=== PATIENT | male | born 2000 | race Caucasian/White ===

== ENCOUNTER 2020-08-16 16:53 | Emergency (ER) | payer SELFPAY ==
--- NOTE | 2020-08-16 17:38 | RAD REPORT ---
EXAM DESCRIPTION: RAD - Chest Single View - 08/16/2020 5:30 pm CLINICAL HISTORY: COUGH Chest pain. COMPARISON: No comparisons FINDINGS: Portable technique limits examination quality. The lungs are grossly clear. The heart is normal in size. No displaced fractures. IMPRESSION: No acute intrathoracic process suspected.
--- NOTE | 2020-08-16 17:49 | ER ---
Nurse's Notes [facility] Name: Britton Stapleton Age: 20 yrs Sex: Male : 2000 Arrival Date: 08/16/2020 Time: 16:57 Bed 15 Private MD: Diagnosis: Cough Presentation: 08/16 17:05 Chief complaint: Patient states: "I was spitting up blood today and my work wanted me aa5 to check it out". Pt denies cough, denies fever. 17:05 Coronavirus screen: Client denies travel out of the [place] in the last 14 days. At this aa5 time, the client does not indicate any symptoms associated with coronavirus-19. Ebola Screen: Patient negative for fever greater than or equal to 101.5 degrees Fahrenheit, and additional compatible Ebola Virus Disease symptoms. Initial Sepsis Screen: Does the patient meet any 2 criteria? No. Patient's initial sepsis screen is negative. Does the patient have a suspected source of infection? No. Patient's initial sepsis screen is negative. Risk Assessment: Do you want to hurt yourself or someone else? Patient reports no desire to harm self or others. Onset of symptoms was August 16, 2020. 17:05 Acuity: TYLER 4 aa5 17:05 Method Of Arrival: Ambulatory aa5 Historical: - Allergies: 17:10 No Known Allergies; aa5 - PMHx: 17:10 Asthma; aa5 - PSHx: 17:10 L foot sx; aa5 - Immunization history:: Adult Immunizations unknown. - Social history:: Smoking status: Patient reports the use of cigarette tobacco products, 2-3 cigarettes a day . Vital Signs: 17:10 BP 106 / 52; Pulse 95; Resp 18 S; Temp 98.1(O); Pulse Ox 95% on R/A; Weight 67.13 kg aa5 (R); Height 5 ft. 9 in. (175.26 cm) (R); Pain 0/10; 17:10 Body Mass Index 21.86 (67.13 kg, 175.26 cm) aa5 ED Course: 16:57 Patient arrived in ED. ag5 17:05 Arm band placed on. aa5 17:12 Kristina Meza FNP-C is PHCP. kb 17:12 Brandt Champion MD is Attending Physician. kb 17:31 Chest Single View XRAY In Process Unspecified. EDMS 17:32 Triage completed. aa5 17:52 Cynthia Vasquez, RN is Primary Nurse. iw Administered Medications: No medications were administered Outcome: 17:48 Discharge ordered by . kb 17:57 Patient left the ED. iw Signatures: Dispatcher [employer] EDTN Kristina Meza, JOURNEYMAN POWER PLANT OPERATOR-C JOURNEYMAN POWER PLANT OPERATOR-Ckb Cynthia Vasquez, RN RN iw Kristi Sahni RN RN aa Elida Cueto [facility]
--- NOTE | 2020-08-16 17:49 | EDPHYS ---
Physician Documentation [facility] Name: Britton Stapleton Age: 20 yrs Sex: Male : 2000 Arrival Date: 08/16/2020 Time: 16:57 Bed 15 Private MD: ED Physician Brandt Champion HPI: 08/16 17:44 This 20 yrs old Male presents to ER via Ambulatory with complaints of kb Spitting up blood. 17:44 The patient or guardian reports cough, that is intermittent, described as moderate, kb with productive sputum. Onset: The symptoms/episode began/occurred today. Severity of symptoms: At their worst the symptoms were mild, moderate, in the emergency department the symptoms have resolved. Modifying factors: The symptoms are alleviated by nothing, the symptoms are aggravated by nothing. Associated signs and symptoms: The patient has no apparent associated signs or symptoms. The patient has not experienced similar symptoms in the past. The patient has not recently seen a physician. Pt reports he had been coughing all day. States he noticed some blood in his spit a little while ago and someone from work saw it so they told him he had to come get checked out to return. Pt states "I feel fine.". Historical: - Allergies: 17:10 No Known Allergies; aa5 - PMHx: 17:10 Asthma; aa5 - PSHx: 17:10 L foot sx; aa5 - Immunization history:: Adult Immunizations unknown. - Social history:: Smoking status: Patient reports the use of cigarette tobacco products, 2-3 cigarettes a day . ROS: 17:43 Constitutional: Negative for fever, chills, and weight loss, Cardiovascular: Negative kb for chest pain, palpitations, and edema, Abdomen/GI: Negative for abdominal pain, nausea, vomiting, diarrhea, and constipation, Back: Negative for injury and pain, MS/Extremity: Negative for injury and deformity, Skin: Negative for injury, rash, and discoloration, Neuro: Negative for headache, weakness, numbness, tingling, and seizure. 17:43 Respiratory: Positive for cough, hemoptysis, Negative for dyspnea on exertion, orthopnea, pleurisy, shortness of breath, wheezing. Exam: 17:43 Constitutional: This is a well developed, well nourished patient who is awake, alert, kb and in no acute distress. Head/Face: Normocephalic, atraumatic. Chest/axilla: Normal chest wall appearance and motion. Nontender with no deformity. No lesions are appreciated. Cardiovascular: Regular rate and rhythm with a normal S1 and S2. No gallops, murmurs, or rubs. Normal PMI, no JVD. No pulse deficits. Respiratory: Lungs have equal breath sounds bilaterally, clear to auscultation and percussion. No rales, rhonchi or wheezes noted. No increased work of breathing, no retractions or nasal flaring. Abdomen/GI: Soft, non-tender, with normal bowel sounds. No distension or tympany. No guarding or rebound. No evidence of tenderness throughout. Skin: Warm, dry with normal turgor. Normal color with no rashes, no lesions, and no evidence of cellulitis. MS/ Extremity: Pulses equal, no cyanosis. Neurovascular intact. Full, normal range of motion. Neuro: Awake and alert, GCS 15, oriented to person, place, time, and situation. Cranial nerves II-XII grossly intact. Motor strength 5/5 in all extremities. Sensory grossly intact. Cerebellar exam normal. Normal gait. Vital Signs: 17:10 BP 106 / 52; Pulse 95; Resp 18 S; Temp 98.1(O); Pulse Ox 95% on R/A; Weight 67.13 kg aa5 (R); Height 5 ft. 9 in. (175.26 cm) (R); Pain 0/10; 17:10 Body Mass Index 21.86 (67.13 kg, 175.26 cm) aa5 MDM: 17:12 Patient medically screened. kb 17:42 Data reviewed: vital signs, nurses notes. Data interpreted: Pulse oximetry: on room air kb is 95 %. Interpretation: normal. Counseling: I had a detailed discussion with the patient and/or guardian regarding: the historical points, exam findings, and any diagnostic results supporting the discharge/admit diagnosis, radiology results, the need for outpatient follow up, a family practitioner, to return to the emergency department if symptoms worsen or persist or if there are any questions or concerns that arise at home. 08/16 17:16 Order name: Chest Single View XRAY; Complete Time: 17:39 kb Administered Medications: No medications were administered Disposition: 08/17 07:34 Co-signature as Attending Physician, Brandt Akira MD I agree with the assessment and kaveh plan of care. Disposition: 08/16/20 17:48 Discharged to Home. Impression: Cough. - Condition is Stable. - Discharge Instructions: Cough, Adult, [id number]. - Medication Reconciliation Form, Thank You Letter, Antibiotic Education, Prescription Opioid Use, Work release form form. - Follow up: Emergency Department; When: As needed; Reason: Worsening of condition. Follow up: Private Physician; When: 2 - 3 days; Reason: Recheck today's complaints, Continuance of care, Re-evaluation by your physician. Signatures: Dispatcher [employer] EDMS Kristina Meza, MACHINE OPERATIONS SUPERVISOR-C MACHINE OPERATIONS SUPERVISOR-Ckb Brandt Champion MD MD cha Williams, Irene, RN RN Kristi Velázquez RN RN aa5 Corrections: (The following items were deleted from the chart) 08/16 17:44 17:43 Respiratory: Positive for cough, Negative for dyspnea on exertion, hemoptysis, kb orthopnea, pleurisy, shortness of breath, wheezing, kb 17:57 17:48 08/16/2020 17:48 Discharged to Home. Impression: Cough. Condition is Stable. iw Discharge Instructions: Cough, Adult, [id number]. Forms are Medication Reconciliation Form, Thank You Letter, Antibiotic Education, Prescription Opioid Use. Follow up: Emergency Department; When: As needed; Reason: Worsening of condition. Follow up: Private Physician; When: 2 - 3 days; Reason: Recheck today's complaints, Continuance of care, Re-evaluation by your physician. kb
[2020-08-16 18:00] VITALS: BP 106/52; TEMP 98.1; O2SAT 95
== END 2020-08-16 17:57 | disposition home or self-care (01) ==
LOC: ER 16:53
DX: R05 Cough (principal); F17.210 Nicotine dependence, cigarettes, uncomplicated
CPT/HCPCS: 71045; 99282

== ENCOUNTER 2020-12-28 10:33 | Emergency (ER) | payer SELFPAY ==
--- OUTSIDE RECORDS SUMMARY | 2020-12-28 10:36 | XMS REPORT | Continuity of Care Document ---
:2000 Author Organization [facility] t Address [address] [place] [address] Care Team Providers Name Role Phone Unavailable Unavailable Unavailable Problems This patient has no known problems. Allergies, Adverse Reactions, Alerts This patient has no known allergies or adverse reactions. Medications This patient has no known medications. Procedures This patient has no known procedures. Results This patient has no known results.
--- NOTE | 2020-12-28 11:28 | RAD REPORT ---
EXAM DESCRIPTION: CT - Head Brain Wo Cont - 12/28/2020 11:12 am CLINICAL HISTORY: Syncope COMPARISON: None TECHNIQUE: Computed axial tomography of the head was obtained. IV contrast was not requested. All CT scans are performed using dose optimization technique as appropriate and may include automated exposure control or mA/KV adjustment according to patient size. FINDINGS: An intracranial bleed is not seen . The ventricles are normal in caliber. No extra-axial fluid collection is noted. Fluid within the sinuses/ mastoids is not seen. IMPRESSION: No acute intracranial abnormality is seen. If patient's symptoms persist MRI of the bra in would be recommended.
[2020-12-28 11:33] LABS: Absolute Lymphocytes (CBC) 1.6 K/uL (0.7-4.9); Basophils % 0.8 % (0-1.3); Hematocrit 41.4 % (39.6-49.0); MPV 9.4 fL (7.6-11.3); RBC Red Blood Cell Count 4.55 M/uL (4.33-5.43)
[2020-12-28 11:37] LABS: Protime INR 1.03
[2020-12-28 11:39] LABS: ALT/SGPT 33 U/L (12-78); AST/SGOT 16 U/L (15-37); Albumin 4.1 g/dL (3.4-5.0); Alkaline Phosphatase 56 U/L (45-117); BUN Blood Urea Nitrogen 13 mg/dL (7-18); Bicarbonate 27 mmol/L (21-32); Bilirubin Direct < 0.1 mg/dL (0-0.2); Bilirubin Total 0.3 mg/dL (0.2-1.0); CKMB Creatine Kinase MB 1.5 ng/mL (0.3-3.6); Creatine Phosphokinase 158 U/L (39-308); Glucose Level 119 mg/dL (74-106); Lipase 174 U/L (73-393); Magnesium 1.9 mg/dL (1.8-2.4); Potassium 4.1 mmol/L (3.5-5.1); Protein, Total 7.3 g/dL (6.4-8.2); Sodium Level 140 mmol/L (136-145); Troponin (Emerg Dept Use Only) < 0.02 ng/mL (0.0-0.045)
--- NOTE | 2020-12-28 11:53 | EDPHYS ---
Physician Documentation [facility] Name: Britton Stapleton Age: 20 yrs Sex: Male : 2000 Arrival Date: 12/28/2020 Time: 10:36 Bed 15 Private MD: DARÍO Physician Brandt Champion HPI: 12/28 11:45 This 20 yrs old Male presents to ER via Ambulatory with complaints of Anxiety.kb 11:48 The patient has experienced syncope, collapsed. Onset: The symptoms/episode kb began/occurred yesterday. Duration: This was a single episode, that lasted an unknown period of time. Context: the episode(s) was witnessed, by co-worker(s), occurred at work, occurred while the patient was walking, working, Just prior to the episode the patient experienced dizziness. Associated injury: The patient did not suffer any apparent associated injury. Associated signs and symptoms: Pertinent positives: dizziness, Pertinent negatives: abdominal pain, headache, nausea, shortness of breath, tingling, vomiting, weakness. Current symptoms: Currently, the patient is not experiencing any symptoms, the patient feels back to baseline, no decreased level of consciousness, no confusion, no dysphasia, no headache, no paralysis, no visual changes. The patient has not experienced similar symptoms in the past. The patient has not recently seen a physician. "I had an anxiety attack yesterday and passed out at work. 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 States he had a couple of episodes of dizziness throughout the day, but ignored it. Had that feeling again before passing out. States he feels fine now, just needs to get checked out so he can go back to work. Historical: - Allergies: 10:41 No Known Allergies; ll1 - PMHx: 10:41 Asthma; ll1 - PSHx: 10:41 L foot sx; Tonsillectomy; ll1 - Immunization history:: Flu vaccine is not up to date. - Social history:: Smoking status: Patient reports the use of cigarette tobacco products, denies chronic smoking, but will smoke occasionally. ROS: 11:44 Constitutional: Negative for fever, chills, and weight loss, Cardiovascular: Negative kb for chest pain, palpitations, and edema, Respiratory: Negative for shortness of breath, cough, wheezing, and pleuritic chest pain, Abdomen/GI: Negative for abdominal pain, nausea, vomiting, diarrhea, and constipation, MS/Extremity: Negative for injury and deformity, Skin: Negative for injury, rash, and discoloration. 11:44 Neuro: Positive for syncope. 11:44 Psych: Positive for anxiety, Negative for depression, suicide gesture, suicidal ideation. Exam: 11:44 Constitutional: This is a well developed, well nourished patient who is awake, alert, kb and in no acute distress. Head/Face: Normocephalic, atraumatic. Eyes: Pupils equal round and reactive to light, extra-ocular motions intact. Lids and lashes normal. Conjunctiva and sclera are non-icteric and not injected. Cornea within normal limits. Periorbital areas with no swelling, redness, or edema. Chest/axilla: Normal chest wall appearance and motion. Nontender with no deformity. No lesions are appreciated. Cardiovascular: Regular rate and rhythm with a normal S1 and S2. No gallops, murmurs, or rubs. Normal PMI, no JVD. No pulse deficits. Respiratory: Lungs have equal breath sounds bilaterally, clear to auscultation and percussion. No rales, rhonchi or wheezes noted. No increased work of breathing, no retractions or nasal flaring. Abdomen/GI: Soft, non-tender, with normal bowel sounds. No distension or tympany. No guarding or rebound. No evidence of tenderness throughout. Skin: Warm, dry with normal turgor. Normal color with no rashes, no lesions, and no evidence of cellulitis. MS/ Extremity: Pulses equal, no cyanosis. Neurovascular intact. Full, normal range of motion. 11:44 Neuro: Orientation: is normal, to person, place, time \\T\\ situation. Mentation: is normal, able to follow commands, Motor: is normal, moves all fours, Sensation: is normal, Gait: is steady, without difficulty. 11:52 ECG was reviewed by the Attending Physician. kb Vital Signs: 10:39 BP 128 / 73; Pulse 81; Resp 16; Temp 97.5; Pulse Ox 100% ; Height 5 ft. 9 in. (175.26 ll1 cm); Pain 6/10; 11:20 BP 112 / 64 Supine; Pulse 62; Resp 16; Temp 98; Pulse Ox 98% ; dm14 11:20 BP 95 / 72 Sitting; Pulse 68; dm14 11:20 BP 134 / 69 Standing; Pulse 78; dm14 MDM: 10:51 Patient medically screened. kb 11:43 Data reviewed: vital signs, nurses notes. Data interpreted: Pulse oximetry: on room air kb is 98 %. Interpretation: normal. Counseling: I had a detailed discussion with the patient and/or guardian regarding: the historical points, exam findings, and any diagnostic results supporting the discharge/admit diagnosis, lab results, radiology results, the need for outpatient follow up, a family practitioner, to return to the emergency department if symptoms worsen or persist or if there are any questions or concerns that arise at home. 12/28 10:59 Order name: Basic Metabolic Panel kb 12/28 10:59 Order name: CBC with Diff kb 12/28 10:59 Order name: Ckmb kb 12/28 10:59 Order name: CPK kb 12/28 10:59 Order name: Hepatic Function; Complete Time: 11:42 kb 12/28 10:59 Order name: Lipase; Complete Time: 11:42 kb 12/28 10:59 Order name: Magnesium; Complete Time: 11:42 kb 12/28 10:59 Order name: Protime (+inr); Complete Time: 11:42 kb 12/28 10:59 Order name: Ptt, Activated; Complete Time: 11:42 kb 12/28 10:59 Order name: Troponin (emerg Dept Use Only); Complete Time: 11:42 kb 12/28 11:00 Order name: Basic Metabolic Panel; Complete Time: 11:42 EDMS 12/28 11:00 Order name: CBC with Automated Diff; Complete Time: 11:42 EDMS 12/28 11:00 Order name: CKMB Creatine Kinase MB; Complete Time: 11:42 EDMS 12/28 11:00 Order name: Creatine Phosphokinase; Complete Time: 11:42 EDMS 12/28 10:59 Order name: EKG; Complete Time: 11:01 kb 12/28 10:59 Order name: Cardiac monitoring; Complete Time: 11:19 kb 12/28 10:59 Order name: EKG - Nurse/Tech; Complete Time: 11:18 kb 12/28 10:59 Order name: IV Saline Lock; Complete Time: 11:19 kb 12/28 10:59 Order name: Labs collected and sent; Complete Time: 11:19 kb 12/28 10:59 Order name: NPO; Complete Time: 11:19 kb 12/28 10:59 Order name: O2 Per Protocol; Complete Time: 11:18 kb 12/28 10:59 Order name: O2 Sat Monitoring; Complete Time: 11:18 kb 12/28 10:59 Order name: Orthostatics; Complete Time: 12:43 kb 12/28 10:59 Order name: CT Head Brain wo Cont; Complete Time: 11:42 kb EC:52 Rate is 69 beats/min. Rhythm is regular. QRS [place] is Normal. DE interval is normal at kb 128 msec. QRS interval is normal at 92 msec. QT interval is normal at 370 msec. Administered Medications: 12:43 Not Given (Patient Refused): NS 0.9% 1000 ml IV at 1000 ml once dm14 Disposition: 16:57 Co-signature as Attending Physician, Brandt Champion MD I agree with the assessment and kaveh plan of care. Disposition: 12/28/20 11:52 Discharged to Home. Impression: Syncope and collapse. - Condition is Stable. - Discharge Instructions: Syncope, [id number], Panic Attacks, [id number]. - Work release form, Medication Reconciliation Form, Thank You Letter, Antibiotic Education, Prescription Opioid Use form. - Follow up: Emergency Department; When: As needed; Reason: Worsening of condition. Follow up: Private Physician; When: 2 - 3 days; Reason: Recheck today's complaints, Continuance of care, Re-evaluation by your physician. Signatures: Dispatcher [employer] EDMS Kristina Meza, JOSEC ARNALDO-Brandt Murphy MD MD cha Smirch, Shelby, RN RN ss Abilio Garcia RN RN ll1 Deepti De Jesus RN dm14 Corrections: (The following items were deleted from the chart) 12:44 10:59 Urine Dipstick-Ancillary ordered. kb dm14 13:14 11:52 12/28/2020 11:52 Discharged to Home. Impression: Syncope and collapse. Condition ss is Stable. Forms are Medication Reconciliation Form, Thank You Letter, Antibiotic Education, Prescription Opioid Use. Follow up: Emergency Department; When: As needed; Reason: Worsening of condition. Follow up: Private Physician; When: 2 - 3 days; Reason: Recheck today's complaints, Continuance of care, Re-evaluation by your physician. kb
--- NOTE | 2020-12-28 11:53 | ER ---
Nurse's Notes [facility] Name: Britton Stapleton Age: 20 yrs Sex: Male : 2000 Arrival Date: 12/28/2020 Time: 10:36 Bed 15 Private MD: Diagnosis: Syncope and collapse Presentation: 12/28 10:39 Chief complaint: Patient states: Had an anxiety attack last night at work. Passed out, ll1 his mom took him home. Feels better today, states his job wants him checked out before he returns to work. Coronavirus screen: Client denies travel out of the [place] in the last 14 days. At this time, the client does not indicate any symptoms associated with coronavirus-19. Ebola Screen: Patient denies travel to an Ebola-affected area in the 21 days before illness onset. Initial Sepsis Screen: Does the patient meet any 2 criteria? No. Patient's initial sepsis screen is negative. Does the patient have a suspected source of infection? No. Patient's initial sepsis screen is negative. Risk Assessment: Do you want to hurt yourself or someone else? Patient reports no desire to harm self or others. Onset of symptoms was December 27, 2020. 10:39 Method Of Arrival: Ambulatory ll1 10:39 Acuity: TYLER 3 ll1 Triage Assessment: 11:20 General: Appears in no apparent distress. comfortable, slender, Behavior is calm, dm14 cooperative, appropriate for age. 11:20 Pain: Denies pain. dm14 Historical: - Allergies: 10:41 No Known Allergies; ll1 - PMHx: 10:41 Asthma; ll1 - PSHx: 10:41 L foot sx; Tonsillectomy; ll1 - Immunization history:: Flu vaccine is not up to date. - Social history:: Smoking status: Patient reports the use of cigarette tobacco products, denies chronic smoking, but will smoke occasionally. Screenin:20 Abuse screen: Denies threats or abuse. Denies injuries from another. Nutritional dm14 screening: No deficits noted. Tuberculosis screening: No symptoms or risk factors identified. Fall Risk None identified. Assessment: 11:20 General: Appears in no apparent distress. comfortable, slender, well groomed, Behavior dm14 is calm, cooperative, appropriate for age. Pain: Denies pain. Neuro: No deficits noted. Cardiovascular: Reports syncope, since Pt had a syncopal episode yesterday. Respiratory: No deficits noted. GI: No deficits noted. : No deficits noted. 12:00 Reassessment: No changes from previously documented assessment. dm14 Vital Signs: 10:39 BP 128 / 73; Pulse 81; Resp 16; Temp 97.5; Pulse Ox 100% ; Height 5 ft. 9 in. (175.26 ll1 cm); Pain 6/10; 11:20 BP 112 / 64 Supine; Pulse 62; Resp 16; Temp 98; Pulse Ox 98% ; dm14 11:20 BP 95 / 72 Sitting; Pulse 68; dm14 11:20 BP 134 / 69 Standing; Pulse 78; dm14 ED Course: 10:36 Patient arrived in ED. ds1 10:41 Triage completed. ll1 10:41 Arm band placed on. ll1 10:51 [facility]C [facility]. kb 10:51 Brandt Champion MD is Attending Physician. kb 11:05 Inserted saline lock: 22 gauge in left antecubital area, using aseptic technique. Blood ss collected. 11:11 CT Head Brain wo Cont In Process Unspecified. EDMS 11:17 EKG done, by ED staff, reviewed by Kristina MASON. 3 11:18 Deepti De Jesus, CHRISTIANO is Primary Nurse. dm14 11:20 Patient has correct armband on for positive identification. Bed in low position. Call dm14 light in reach. 11:20 No provider procedures requiring assistance completed. Inserted. dm14 12:00 IV discontinued, intact, bleeding controlled, No redness/swelling at site. Pressure dm14 dressing applied. Administered Medications: 12:43 Not Given (Patient Refused): NS 0.9% 1000 ml IV at 1000 ml once dm14 Outcome: 11:52 Discharge ordered by MD. kb 13:14 Patient left the ED. ss 13:32 Discharged to home ambulatory. dm14 13:32 Condition: stable 13:32 Discharge instructions given to patient, Instructed on discharge instructions, follow up and referral plans. Demonstrated understanding of instructions, follow-up care. Signatures: Dispatcher [employer] EDMO Kristina Meza FNP-C FNP-Ckb Sanford, Demi ds1 Shena Beltran RN RN Ryanne Sylvester 3 Abilio Garcia, RN RN ll1 Deepti De Jesus RN RN dm14 Corrections: (The following items were deleted from the chart) 13:24 General: Appears in no apparent distress. comfortable, slender, well groomed, dm14 Behavior is calm, cooperative, appropriate for age, dm14 : 13:24 Pain: Denies pain. dm14 dm14 13:24 Neuro: No deficits noted. dm14 dm14 13:24 Cardiovascular: Reports syncope, since Pt had a syncopal episode yesterday dm14 dm14 13:24 Respiratory: No deficits noted. dm14 dm14 13:24 GI: No deficits noted. dm14 dm14 13:24 : No deficits noted. dm14 dm14 33 13:32 Pain: Denies pain. dm14 dm14
[2020-12-28 13:23] VITALS: BP 134/69; TEMP 98; O2SAT 98
--- NOTE | 2020-12-30 05:43 | EKG ---
Test Date: 2020-12-28 Test Time: 11:17:57 Past Due Accounts Clerk: TAY MEASUREMENT RESULTS: Intervals: Rate: 69 IL: 128 QRSD: 92 QT: 370 QTc: 396 [place]: P: 44 IL: 128 QRS: 93 T: 58 INTERPRETIVE STATEMENTS: Normal sinus rhythm Rightward axis Incomplete right bundle branch block Borderline ECG No previous ECG available for comparison Electronically Signed On 12-30-20 05:36:17 PROGRESS MAN by Jerrell Wilson
== END 2020-12-28 13:14 | disposition home or self-care (01) ==
LOC: ER 10:33
DX: R55 Syncope and collapse (principal); F41.9 Anxiety disorder, unspecified; F17.290 Nicotine dependence, other tobacco product, uncomplicated
CPT/HCPCS: 36415; 70450; 80048; 80076; 82550; 82553; 83690; 83735; 84484; 85025; 85610; 85730; 93005; 99284

== ENCOUNTER 2021-11-29 15:16 | Emergency (ER) | payer SELFPAY ==
--- OUTSIDE RECORDS SUMMARY | 2021-11-29 15:27 | XMS REPORT | Continuity of Care Document ---
:2000 Author Organization [facility] t Address [address] [place] [id number] Care Team Providers Name Role Phone Unavailable Unavailable Unavailable Problems This patient has no known problems. Allergies, Adverse Reactions, Alerts This patient has no known allergies or adverse reactions. Medications This patient has no known medications. Procedures This patient has no known procedures. Results This patient has no known results.
[2021-11-29 17:16] LABS: SARS-COV-2 RT PCR NEGATIVE (NEGATIVE)
--- NOTE | 2021-11-29 17:18 | ER ---
Nurse's Notes [facility] Name: Britton Stapleton Age: 21 yrs Sex: Male : 2000 Arrival Date: 11/29/2021 Time: 15:17 Bed 9 Private MD: Diagnosis: Other malaise and fatigue Presentation: 11/29 15:51 Chief complaint: Patient states: Pt presents to ed for c/o fatigue and body aches. Pt ab2 states, "I went to work this morning and felt like I had been through the ringer, so I wanted to come make sure nothing was wrong.". Coronavirus screen: Vaccine status: Patient reports receiving the 2nd dose of the covid vaccine. Client denies travel out of the [place] in the last 14 days. cough unrelated to allergies, fatigue, Client presents with at least one sign or symptom that may indicate coronavirus-19. Standard/surgical mask placed on the client. Provider contacted for isolation considerations. Ebola Screen: Patient negative for fever greater than or equal to 101.5 degrees Fahrenheit, and additional compatible Ebola Virus Disease symptoms Patient denies exposure to infectious person. Patient denies travel to an Ebola-affected area in the 21 days before illness onset. No symptoms or risks identified at this time. Initial Sepsis Screen: Does the patient meet any 2 criteria? No. Patient's initial sepsis screen is negative. Does the patient have a suspected source of infection? No. Patient's initial sepsis screen is negative. Risk Assessment: Do you want to hurt yourself or someone else? Patient reports no desire to harm self or others. Onset of symptoms was November 29, 2021 at 08:00. 15:51 Method Of Arrival: Ambulatory ab2 15:51 Acuity: TYLER 4 ab2 Triage Assessment: 15:55 General: Appears in no apparent distress. comfortable, Behavior is calm, cooperative, ab2 appropriate for age. Pain: Denies pain. EENT: No deficits noted. Reports nasal congestion. Neuro: No deficits noted. Level of Consciousness is awake, alert, obeys commands, Oriented to person, place, time, situation, Appropriate for age Clinical Physician Assistant are equal bilaterally Moves all extremities. Gait is steady. Cardiovascular: No deficits noted. Denies chest pain, shortness of breath, Heart tones S1 S2 present Patient's skin is warm and dry. Respiratory: Reports cough that is Airway is patent Breath sounds are clear bilaterally. GI: No deficits noted. No signs and/or symptoms were reported involving the gastrointestinal system. : No deficits noted. No signs and/or symptoms were reported regarding the genitourinary system. Derm: No deficits noted. No signs and/or symptoms reported regarding the dermatologic system. Musculoskeletal: Reports weakness in generalized. Historical: - Allergies: 15:54 No Known Allergies; ab2 - Home Meds: 15:54 None [Active]; ab2 - PMHx: 15:54 Asthma; ab2 - Immunization history:: Adult Immunizations up to date, Client reports receiving the 2nd dose of the Covid vaccine. - Social history:: Smoking status: Patient reports use of chewing tobacco. Patient/guardian denies using alcohol, street drugs, IV drugs. Screenin:55 Abuse screen: Denies threats or abuse. Denies injuries from another. Nutritional ab2 screening: No deficits noted. Tuberculosis screening: No symptoms or risk factors identified. Fall Risk None identified. Assessment: 15:56 Reassessment: Patient appears in no apparent distress at this time. No changes from ab2 previously documented assessment. Vital Signs: 15:51 BP 142 / 87; Pulse 81; Resp 16; Temp 98.3(T); Pulse Ox 97% on R/A; Weight 63.5 kg; ab2 Height 5 ft. 9 in. (175.26 cm); Pain 0/10; 17:26 BP 129 / 69; Pulse 74; Resp 16; Pulse Ox 99% on R/A; ab2 15:51 Body Mass Index 20.67 (63.50 kg, 175.26 cm) ab2 ED Course: 15:17 Patient arrived in ED. am2 15:54 Triage completed. ab2 15:55 [facility] Me[facility]-C [facility] kb 15:55 Corey Thomas MD is Attending Physician. kb 15:58 Dylan Perdomo is Primary Nurse. ab2 16:00 COVID-19/FLU A+B (Document "Date of Onset" if Symptomatic) Sent. ab2 17:26 No provider procedures requiring assistance completed. Patient did not have IV access ab2 during this emergency room visit. Administered Medications: No medications were administered Outcome: 17:17 Discharge ordered by . kb 17:26 Discharged to home ambulatory. ab2 17:26 Condition: good 17:26 Discharge instructions given to patient, family, Instructed on discharge instructions, follow up and referral plans. Demonstrated understanding of instructions, follow-up care. 17:27 Patient left the ED. ab2 Signatures: Kristina Meza, ISABELLA SPOOLING OPERATOR-Perla Flood am2 Dylan Perdomo ab2
--- NOTE | 2021-11-29 17:18 | EDPHYS ---
Physician Documentation [facility] Name: Britton Stapleton Age: 21 yrs Sex: Male : 2000 Arrival Date: 11/29/2021 Time: 15:17 Bed 9 Private MD: ED Physician Corey Thomas HPI: 11/29 15:59 This 21 yrs old Male presents to ER via Ambulatory with complaints of bodyaches. kb 15:59 The patient or guardian reports flu symptoms, myalgias. Onset: The symptoms/episode kb began/occurred 3 day(s) ago. Severity of symptoms: At their worst the symptoms were mild, moderate, in the emergency department the symptoms are unchanged. Modifying factors: The symptoms are alleviated by nothing, the symptoms are aggravated by nothing. Associated signs and symptoms: The patient has no apparent associated signs or symptoms. The patient has not experienced similar symptoms in the past. The patient has not recently seen a physician. Pt reports fatigue and bodyaches for a few days, worse today. Historical: - Allergies: 15:54 No Known Allergies; ab2 - Home Meds: 15:54 None [Active]; ab2 - PMHx: 15:54 Asthma; ab2 - Immunization history:: Adult Immunizations up to date, Client reports receiving the 2nd dose of the Covid vaccine. - Social history:: Smoking status: Patient reports use of chewing tobacco. Patient/guardian denies using alcohol, street drugs, IV drugs. ROS: 15:59 Respiratory: Negative for shortness of breath, cough, wheezing, and pleuritic chest kb pain. 15:59 Constitutional: Positive for body aches, fatigue, malaise. 15:59 All other systems are negative. Exam: 15:59 Constitutional: This is a well developed, well nourished patient who is awake, alert, kb and in no acute distress. Head/Face: Normocephalic, atraumatic. ENT: Moist Mucous membranes Respiratory: Respirations even and unlabored. No increased work of breathing. Talking in full sentences Skin: Warm, dry with normal turgor. Normal color. MS/ Extremity: Pulses equal, no cyanosis. Neurovascular intact. Full, normal range of motion. Neuro: Awake and alert, GCS 15, oriented to person, place, time, and situation. Moves all extremities. Normal gait. Psych: Awake, alert, with orientation to person, place and time. Behavior, mood, and affect are within normal limits. Vital Signs: 15:51 BP 142 / 87; Pulse 81; Resp 16; Temp 98.3(T); Pulse Ox 97% on R/A; Weight 63.5 kg; ab2 Height 5 ft. 9 in. (175.26 cm); Pain 0/10; 17:26 BP 129 / 69; Pulse 74; Resp 16; Pulse Ox 99% on R/A; ab2 15:51 Body Mass Index 20.67 (63.50 kg, 175.26 cm) ab2 MDM: 15:56 Patient medically screened. kb 16:00 Data reviewed: vital signs, nurses notes. Data interpreted: Pulse oximetry: on room air kb is 97 %. Interpretation: normal. 17:16 Counseling: I had a detailed discussion with the patient and/or guardian regarding: the kb historical points, exam findings, and any diagnostic results supporting the discharge/admit diagnosis, lab results, the need for outpatient follow up, a family practitioner, to return to the emergency department if symptoms worsen or persist or if there are any questions or concerns that arise at home. 11/29 15:56 Order name: COVID-19/FLU A+B (Document "Date of Onset" if Symptomatic); Complete Time: kb 17:16 Administered Medications: No medications were administered Disposition: 11/30 04:39 Co-signature as Attending Physician, Corey Thomas MD I agree with the assessment and sp3 plan of care. Disposition Summary: 11/29/21 17:17 Discharge Ordered Location: Home kb Condition: Stable kb Diagnosis - Other malaise and fatigue kb Followup: kb - With: Emergency Department - When: As needed - Reason: Worsening of condition Followup: kb - With: Private Physician - When: 2 - 3 days - Reason: Recheck today's complaints, Continuance of care, Re-evaluation by your physician Discharge Instructions: - Discharge Summary Sheet kb - Fatigue kb Forms: - Medication Reconciliation Form kb - Thank You Letter kb - Antibiotic Education kb - Prescription Opioid Use kb - Work release form ab2 Signatures: Dispatcher [employer] Kristina Montes, ISABELLA MCINTOSH-Corey Schultz MD MD sp3 Dylan Perdomo ab2
[2021-11-29 17:42] VITALS: TEMP 98.3
[2021-11-29 17:43] VITALS: BP 129/69; O2SAT 99
== END 2021-11-29 17:27 | disposition home or self-care (01) ==
LOC: ER 15:16
DX: R53.81 Other malaise (principal); F17.220 Nicotine dependence, chewing tobacco, uncomplicated; Z20.822 Contact with and (suspected) exposure to COVID-19
CPT/HCPCS: 0240U; 99283

== ENCOUNTER 2022-07-01 16:54 | Emergency (ER) | payer SELFPAY ==
--- OUTSIDE RECORDS SUMMARY | 2022-07-01 16:58 | XMS REPORT | Continuity of Care Document ---
:2000 Author Organization [facility] Address [address] [place] [address] Dr. Brice [address] [place] [id number] Care Team Providers Name Role Phone Unavailable Unavailable Unavailable Problems This patient has no known problems. Allergies, Adverse Reactions, Alerts This patient has no known allergies or adverse reactions. Medications This patient has no known medications. Procedures This patient has no known procedures. Results This patient has no known results.
--- NOTE | 2022-07-01 18:53 | RAD REPORT ---
EXAM DESCRIPTION: RAD - Finger-Thumb Right - 07/01/2022 6:07 pm CLINICAL HISTORY: PAIN COMPARISON: No comparisons FINDINGS: No acute fracture. No malalignment. No significant focal degenerative changes. No radiopaq ue foreign body. IMPRESSION: No acute osseous abnormality involving the right hand.
[2022-07-01] MEDS ORDERED: LIDOCAINE 1% MPF 30 ML VIAL ONE (18:56)
[2022-07-01] MEDS ORDERED: BUPIVACAINE 0.5% PF 10 ML VIAL ONE (18:56)
--- NOTE | 2022-07-01 19:19 | EDPHYS ---
Physician Documentation [facility] Name: Britton Stapleton Age: 22 yrs Sex: Male : 2000 Arrival Date: 07/01/2022 Time: 16:58 Bed 12 Private MD: ED Physician Sma Vines HPI: 07/01 17:30 This 22 yrs old Male presents to ER via Ambulatory with complaints of Finger Injury. cp Historical: - Allergies: 17:02 No Known Allergies; hb - PMHx: 17:02 Asthma; hb - Immunization history:: Adult Immunizations up to date. - Social history:: Smoking status: Patient denies any tobacco usage or history of. ROS: 17:35 Constitutional: Negative for body aches, chills, fever. cp 17:35 Cardiovascular: Negative for chest pain, palpitations. 17:35 Respiratory: Negative for cough, shortness of breath, wheezing. 17:35 MS/extremity: Positive for laceration, pain, paresthesias, swelling, tenderness, of the distal phalanx left index finger, Negative for decreased range of motion. 17:35 All other systems are negative. cp Exam: 17:40 Constitutional: The patient appears in no acute distress, alert, awake, well developed, cp well nourished. 17:40 Head/Face: Normocephalic, atraumatic. cp 17:40 Cardiovascular: Rate: normal, Rhythm: regular. 17:40 Respiratory: the patient does not display signs of respiratory distress, Respirations: normal. 17:40 Musculoskeletal/extremity: Extremities: grossly normal except: noted in the distal phalanx left index finger: swelling, tenderness, multiple lacerations noted henderson side with small laceration of nail noted, minimal bleeding, numbness noted of tip of finger. Vital Signs: 17:01 BP 138 / 81; Pulse 85; Resp 16; Temp 97.8; Pulse Ox 100% on R/A; Weight 81.65 kg; hb Height 5 ft. 9 in. (175.26 cm); Pain 5/10; 17:01 Body Mass Index 26.58 (81.65 kg, 175.26 cm) hb Laceration: 19:16 Wound Repair of 2cm ( 0.8in ) subcutaneous laceration to distal phalanx left index cp finger. Irregularly shaped.. Distal neuro/vascular/tendon intact. Anesthesia: Digital block administered with 6 mls of Lido/Marcaine. Wound prep: Moderate cleansing by me, Wound irrigation by me. Skin closed with 4 5-0 Prolene using interrupted sutures and sterile technique. Dressed with Bacitracin. Patient tolerated well. MDM: 17:09 Patient medically screened. cp 18:00 Differential diagnosis: open fracture, closed fracture, simple laceration, nail cp avulsion, subungual hematoma. 19:19 Data reviewed: vital signs, nurses notes, radiologic studies, plain films. cp 19:19 Test interpretation: by ED physician or midlevel provider: plain radiologic studies. cp Counseling: I had a detailed discussion with the patient and/or guardian regarding: the historical points, exam findings, and any diagnostic results supporting the discharge/admit diagnosis, radiology results, to return to the emergency department if symptoms worsen or persist or if there are any questions or concerns that arise at home. Response to treatment: the patient's symptoms have markedly improved after treatment, and as a result, I will discharge patient. 07/01 17:15 Order name: XRAY Finger-Thumb RIGHT; Complete Time: 19:16 cp 07/01 19:16 Interpretation: Reviewed. cp 07/01 18:30 Order name: Dressing - Wound; Complete Time: 18:47 cp 07/01 18:30 Order name: Gloves, Sterile; Complete Time: 18:47 cp 07/01 18:30 Order name: Setup Suture Tray; Complete Time: 18:47 cp 07/01 19:16 Order name: Wound dressing; Complete Time: 19:29 cp 07/01 19:16 Order name: Finger Splint; Complete Time: 19:29 cp Administered Medications: 18:55 Drug: Lidocaine (1 %) 10 ml {Note: given by provider PA Page.} Volume: 20 ml; Route: mb8 Infiltration; 18:55 Drug: Marcaine (bupivacaine) (0.5 %) 10 ml {Note: given by provider PA Page.} Volume: mb8 10 ml; Route: Infiltration; Disposition: 07/02 17:17 Co-signature as Attending Physician, Sam Vines MD. rn Disposition Summary: 07/01/22 19:19 Discharge Ordered Location: Home cp Problem: new cp Symptoms: have improved cp Condition: Stable cp Diagnosis - Laceration without foreign body of left index finger with damage to nail cp Followup: cp - With: Private Physician - When: 7 - 10 days - Reason: Staple/Suture removal Discharge Instructions: - Discharge Summary Sheet cp - Laceration Care, Adult cp - Sutured Wound Care cp Forms: - Medication Reconciliation Form cp - Thank You Letter cp - Antibiotic Education cp - Prescription Opioid Use cp - Work release form wm Prescriptions: - Cephalexin 500 mg Oral Capsule - take 1 capsule by ORAL route every 8 hours for 10 days; 30 capsule; Refills: 0, cp Product Selection Permitted - Ibuprofen 800 mg Oral Tablet - take 1 tablet by ORAL route every 8 hours As needed take with food; 30 tablet; cp Refills: 0, Product Selection Permitted Signatures: Dispatcher [employer] EDMS Sam Vines MD MD rn Page, Corey, PA PA cp Baxter, Heather, RN RN Aldair Sheffield RN RN mb8
--- NOTE | 2022-07-01 19:19 | ER ---
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 Bleeding controlled. Coronavirus screen: At this time, the client does not indicate any symptoms associated with coronavirus-19. Ebola Screen: No symptoms or risks identified at this time. Initial Sepsis Screen: Does the patient meet any 2 criteria? No. Patient's initial sepsis screen is negative. Does the patient have a suspected source of infection? No. Patient's initial sepsis screen is negative. Risk Assessment: Do you want to hurt yourself or someone else? Patient reports no desire to harm self or others. Onset of symptoms was July 01, 2022. 17:01 Method Of Arrival: Ambulatory hb 17:01 Acuity: TYLER 4 hb Triage Assessment: 17:20 General: Appears in no apparent distress. comfortable, Behavior is calm, cooperative, mb8 appropriate for age. Injury Description: Laceration sustained to left index finger. Historical: - Allergies: 17:02 No Known Allergies; hb - PMHx: 17:02 Asthma; hb - Immunization history:: Adult Immunizations up to date. - Social history:: Smoking status: Patient denies any tobacco usage or history of. Screenin:19 Abuse screen: Denies threats or abuse. Denies injuries from another. Nutritional mb8 screening: No deficits noted. Tuberculosis screening: No symptoms or risk factors identified. Fall Risk None identified. Assessment: 17:18 Pain: Complains of pain in index finger left hand Pain currently is 4 out of 10 on a mb8 pain scale. Quality of pain is described as throbbing. 17:19 Musculoskeletal: Circulation, motion, and sensation intact. Capillary refill < 3 mb8 seconds, Range of motion: intact in all extremities, Swelling present in left index finger. 18:45 Reassessment: Patient and/or family updated on plan of care and expected duration. Pain mb8 level reassessed. Patient is alert, oriented x 3, equal unlabored respirations, skin warm/dry/pink. Vital Signs: 17:01 BP 138 / 81; Pulse 85; Resp 16; Temp 97.8; Pulse Ox 100% on R/A; Weight 81.65 kg; hb Height 5 ft. 9 in. (175.26 cm); Pain 5/10; 17:01 Body Mass Index 26.58 (81.65 kg, 175.26 cm) hb ED Course: 16:58 Patient arrived in ED. rg4 17:02 Brandt Miller PA is PHCP. cp 17:02 Sam Vines MD is Attending Physician. cp 17:02 Triage completed. hb 17:02 Arm band placed on left wrist. hb 17:14 Aldair Sheffield RN is Primary Nurse. mb8 17:20 Patient has correct armband on for positive identification. Bed in low position. Call mb8 light in reach. Side rails up X2. 17:20 No provider procedures requiring assistance completed. Patient did not have IV access mb8 during this emergency room visit. 18:09 XRAY Finger-Thumb RIGHT In Process Unspecified. EDMS 19:07 Primary Nurse role handed off by Aldair Sheffield RN mb8 19:07 Report given to Mariola ALVARADO. mb8 19:32 Aluminum finger splint applied to palmar aspect of distal phalanx of left index finger mh5 and palmar aspect of middle phalanx of left index finger. Administered Medications: 18:55 Drug: Lidocaine (1 %) 10 ml {Note: given by provider SUZY Miller.} Volume: 20 ml; Route: mb8 Infiltration; 18:55 Drug: Marcaine (bupivacaine) (0.5 %) 10 ml {Note: given by provider SUZY Miller.} Volume: mb8 10 ml; Route: Infiltration; Medication: 19:35 VIS not applicable for this client. ph Outcome: 19:19 Discharge ordered by . cp 19:35 Discharged to home ambulatory. ph 19:35 Condition: stable 19:35 Discharge instructions given to patient, Instructed on discharge instructions, follow up and referral plans. medication usage, Demonstrated understanding of instructions, follow-up care, medications, Prescriptions given X 2. 19:35 Patient left the ED. ph Signatures: Dispatcher [employer] EDUT Amy Varner RN RN Brandt Miller PA PA cp Baxter, Heather, RN RN Jeanne Macedo rg4 Gogo Cannon 5 Aldair Sheffield, RN RN mb8
[2022-07-01 21:14] VITALS: BP 138/81; TEMP 97.8; O2SAT 100
== END 2022-07-01 19:35 | disposition home or self-care (01) ==
LOC: ER 16:54
PROC: 0JQK0ZZ Repair Left Hand Subcutaneous Tissue and Fascia, Open Approach (ICD-10-PCS; principal; 2022-07-01)
DX: S61.311A Laceration without foreign body of left index finger with damage to nail, initial encounter (principal)
CPT/HCPCS: 99284

== ENCOUNTER 2024-07-09 13:20 | Inpatient (IN) | payer OTHER, SELFPAY ==
--- OUTSIDE RECORDS SUMMARY | 2024-07-09 13:23 | XMS REPORT | Continuity of Care Document ---
Author Name Unknown Address [address] [place] [address] [employer] Address [address] [place] [id number] Care Team Providers Care Insurance Sales Manager Name Role Phone Unavailable Unavailable Unavailable
[2024-07-09] MEDS ORDERED: ONDANSETRON 4 MG/2 ML VIAL ONE ×2 (13:55→19:27)
[2024-07-09 13:59] LABS: Absolute Basophils 0.1 K/uL (0-0.5); Absolute Eosinophils 0.1 K/uL (0-0.5); Absolute Lymphocytes (CBC) 2.5 K/uL (0.7-4.9); Absolute Neutrophil 13.7 K/uL (1.8-8.0); Basophils % 0.8 % (0-1.3); Eosinophils % 0.6 % (0-4.4); Hemoglobin 14.9 g/dL (13.6-17.9); Lymphocytes % 14.1 % (15.3-44.8); MCH 29.8 pg (27.0-35.0); MCHC 33.2 g/dL (32.0-36.0); MCV 89.8 fL (80-100); MPV 9.4 fL (7.6-11.3); Monocytes % 5.9 % (3.3-12.3); Neutrophils % 78.6 % (41.7-73.7); Platelets 219 thou/uL (152-406); RBC Red Blood Cell Count 5.02 M/uL (4.33-5.43); Red Cell Distribution Width 13.1 % (12.1-15.2)
--- NOTE | 2024-07-09 14:47 | EDPHYS ---
Physician Documentation [facility] Name: Britton Stapleton Age: 24 yrs Sex: Male : 2000 Arrival Date: 07/09/2024 Time: 13:20 Bed 7 Private MD: ED Physician Rehan Heard HPI: 07/09 19:04 This 24 yrs old Male presents to ER via Ambulatory with complaints of Abdominal Pain. ms3 19:04 24-year-old male with past medical history of asthma and depression presents [place] [facility] [place] department for abdominal pain that began at 10 PM. Patient rates his pain a 6/10 and states the pain is located around his umbilicus. Patient notes he took Tylenol without relief. Historical: - Allergies: 13:37 No Known Allergies; kc6 - PMHx: 13:32 Asthma; ph 13:37 Depressive disorder; kc6 - PSHx: 13:37 None; kc6 - Immunization history:: Adult Immunizations unknown. - Infectious Disease History:: Denies. - Social history:: Smoking status: Patient denies any tobacco usage or history of. ROS: 19:04 Constitutional: Negative for fever, and chills. Cardiovascular: Negative for chest ms3 pain, and palpitations. Respiratory: Negative for shortness of breath, cough, wheezing, and pleuritic chest pain, 19:04 MS/Extremity: Negative for injury and deformity, Skin: Negative for injury, rash, and discoloration, 19:04 Abdomen/GI: Positive for abdominal pain, Exam: 19:04 Constitutional: This is a well developed, well nourished patient who is awake, alert, ms3 and in no acute distress. Head/Face: Normocephalic, atraumatic. Chest/axilla: Normal chest wall appearance and motion. Nontender with no deformity. Cardiovascular: Regular rate and rhythm with a normal S1 and S2. No gallops, murmurs, or rubs. Normal PMI, no JVD. No pulse deficits. Respiratory: Lungs have equal breath sounds bilaterally, clear to auscultation and percussion. No rales, rhonchi or wheezes noted. No increased work of breathing, no retractions or nasal flaring. 19:04 Abdomen/GI: Inspection: abdomen appears normal, Bowel sounds: normal, Palpation: moderate abdominal tenderness, in the umbilical area and right lower quadrant, Vital Signs: 13:35 BP 161 / 90; Pulse 77; Resp 17 S; Temp 98.3(O); Pulse Ox 97% on R/A; Height 5 ft. 9 in. kc6 (R); Pain 6/10; 13:45 BP 161 / 90; Pulse 82; Resp 16; Pulse Ox 98% ; dd2 15:13 Weight 92.99 kg; ph 16:00 BP 138 / 92; Pulse 72; Resp 16; Pulse Ox 94% ; dd2 13:35 Pain Scale: Adult kc6 MDM: 13:49 Patient medically screened. ms3 19:04 Differential diagnosis: appendicitis, bowel obstruction, diverticulitis. Data reviewed: ms3 vital signs, nurses notes, lab test result(s), radiologic studies, CT scan, and as a result, I will admit patient. Consideration of Admission/Observation Patient was admitted/placed on observation. Management of patient was discussed with the following: Hospitalist: Dr Hahn. Teleradiologist: Dr Ortiz. I considered the following discharge prescriptions or medication management in the emergency department Medications were administered in the Emergency Department. See MAR. Counseling: I had a detailed discussion with the patient and/or guardian regarding the historical points, exam findings, and any diagnostic results supporting the discharge/admit diagnosis, lab results, radiology results, the need for further work-up and treatment in the hospital. ED course: Discussed necessity for admission with patient. Patient understands agrees with plan. All questions were answered. Patient remained in stable condition in the emergency department. 07/09 13:49 Order name: CBC with Diff; Complete Time: 14:35 ms3 07/09 13:49 Order name: CMP ms3 07/09 13:49 Order name: Urinalysis w/ reflexes ms3 07/09 15:49 Order name: Basic Metabolic Panel EDMS 07/09 15:49 Order name: Basic Metabolic Panel EDMS 07/09 15:49 Order name: Basic Metabolic Panel EDMS 07/09 15:49 Order name: Basic Metabolic Panel EDMS 07/09 15:49 Order name: Basic Metabolic Panel EDMS 07/09 15:49 Order name: Basic Metabolic Panel EDMS 07/09 15:49 Order name: CBC with Automated Diff EDMS 07/09 15:49 Order name: CBC with Automated Diff EDMS 07/09 15:49 Order name: CBC with Automated Diff EDMS 07/09 15:49 Order name: CBC with Automated Diff EDMS 07/09 15:49 Order name: CBC with Automated Diff EDMS 07/09 15:49 Order name: CBC with Automated Diff EDMS 07/09 15:49 Order name: Magnesium EDMS 07/09 15:49 Order name: Magnesium EDMS 07/09 15:49 Order name: Magnesium EDMS 07/09 15:49 Order name: Magnesium EDMS 07/09 15:49 Order name: Magnesium EDMS 07/09 15:49 Order name: Magnesium EDMS 07/09 15:49 Order name: Phosphorus EDMS 07/09 15:49 Order name: Phosphorus EDMS 07/09 15:49 Order name: Phosphorus EDMS 07/09 15:49 Order name: Phosphorus EDMS 07/09 15:49 Order name: Phosphorus EDMS 07/09 15:49 Order name: Phosphorus EDMS 07/09 13:49 Order name: CT Abd/Pelvis - IV Contrast Only ms3 07/09 15:49 Order name: CONS Physician Consult EDMS 07/09 13:49 Order name: IV Saline Lock; Complete Time: 13:53 ms3 07/09 13:49 Order name: Labs collected and sent; Complete Time: 13:53 ms3 07/09 14:04 Order name: Labs - recollect needed: recollect the blood/ hemolyzed per lab; Complete eb Time: 15:33 Administered Medications: 13:56 Drug: Ondansetron IVP 4 mg IVP once; over 2 minutes Route: IVP; Site: right antecubital;dd2 14:11 Follow up: Response: No adverse reaction dd2 15:44 Drug: Piperacillin-Tazobactam IVPB 3.375 grams IVPB once over 60 mins; (mix in NS 100 dd2 mL) Route: IVPB; Infused Over: 60 mins; Site: right antecubital; Disposition Summary: 07/09/24 14:47 Hospitalization Ordered Notes: Hospitalization Status: Observation ms3 Location: Telemetry/MedSur (observation) ms3 Condition: Stable ms3 Problem: new ms3 Symptoms: are unchanged ms3 Bed/Room Type: Standard ms3 Provider: Des Hahn(07/09/24 15:01) ms3 Room Assignment: [facility](07/09/24 16:38) Diagnosis - Acute appendicitis with localized peritonitis ms3 Forms: - Medication Reconciliation Form ms3 - SBAR form ms3 - Leadership Thank You Letter ms3 Signatures: Dispatcher [employer] Shena Lau, RN RN Amy Varner RN RN Peg Montero Marcus, DO DO ms3 Tameka Bell RN RN [email or web address] Blake Nolasco DIANA, RN RN dd2 Corrections: (The following items were deleted from the chart) 15:01 14:47 Rafaela De Leon ms3 ms3 16:24 14:47 ms3 ty 16:38 16:24 407 ty
--- NOTE | 2024-07-09 14:47 | ER ---
Nurse's Notes [facility] Name: Britton Stapleton Age: 24 yrs Sex: Male : 2000 Arrival Date: 07/09/2024 Time: 13:20 Bed 7 Private MD: Diagnosis: Acute appendicitis with localized peritonitis Presentation: 07/09 13:35 Chief complaint: Patient states: mid belly pain since yesterday, worse this AM with kc6 nausea. states, "I feel like someone is just grabbing ahold of my insides and twisting them.". Coronavirus screen: At this time, the client does not indicate any symptoms associated with coronavirus-19. Ebola Screen: No symptoms or risks identified at this time. Initial Sepsis Screen: Does the patient meet any 2 criteria? No. Patient's initial sepsis screen is negative. Does the patient have a suspected source of infection? No. Patient's initial sepsis screen is negative. Risk Assessment: Do you want to hurt yourself or someone else? Patient reports no desire to harm self or others. Onset of symptoms was July 09, 2024. 13:35 Method Of Arrival: Ambulatory [facility] 13:35 Acuity: TYLER 3 kc6 Historical: - Allergies: 13:37 No Known Allergies; kc6 - PMHx: 13:32 Asthma; ph 13:37 Depressive disorder; kc6 - PSHx: 13:37 None; kc6 - Immunization history:: Adult Immunizations unknown. - Infectious Disease History:: Denies. - Social history:: Smoking status: Patient denies any tobacco usage or history of. Screenin:32 [facility] ED Fall Risk Assessment (Adult) History of falling in the last 3 months, ph including since admission No falls in past 3 months (0 pts) Confusion or Disorientation No (0 pts) Intoxicated or Sedated No (0 pts) Impaired Gait No (0 pts) Mobility Assist Device Used No (0 pt) Altered Elimination No (0 pt) Score/Fall Risk Level 0 - 2 = Low Risk Oriented to surroundings, Maintained a safe environment, Hourly rounding (assess needs \\T\\ fall precautionary measures) done. Abuse screen: Denies threats or abuse. Denies injuries from another. Nutritional screening: No deficits noted. Tuberculosis screening: No symptoms or risk factors identified. Assessment: 13:45 General: Appears uncomfortable, Behavior is calm, cooperative, appropriate for age. dd2 Pain: Complains of pain in umbilical area, suprapubic area and right lower quadrant Pain currently is 8 out of 10 on a pain scale. Pain began 2-3 days ago. Neuro: No deficits noted. Level of Consciousness is awake, alert, obeys commands, Oriented to person, place, time, situation, Appropriate for age. Cardiovascular: No deficits noted. Respiratory: No deficits noted. Airway is patent Respiratory effort is even, unlabored, Respiratory pattern is regular. GI: Abdomen is non-distended, Bowel sounds present X 4 quads. Abdomen is tender to palpation in umbilical area, suprapubic area and right lower quadrant Reports lower abdominal pain, intolerance of fluids, intolerance of food, nausea. : No deficits noted. No signs and/or symptoms were reported regarding the genitourinary system. EENT: No deficits noted. No signs and/or symptoms were reported regarding the EENT system. Derm: No deficits noted. No signs and/or symptoms reported regarding the dermatologic system. Musculoskeletal: No deficits noted. No signs and/or symptoms reported regarding the musculoskeletal system. Vital Signs: 13:35 BP 161 / 90; Pulse 77; Resp 17 S; Temp 98.3(O); Pulse Ox 97% on R/A; Height 5 ft. 9 in. kc6 (R); Pain 6/10; 13:45 BP 161 / 90; Pulse 82; Resp 16; Pulse Ox 98% ; dd2 15:13 Weight 92.99 kg; ph 16:00 BP 138 / 92; Pulse 72; Resp 16; Pulse Ox 94% ; dd2 13:35 Pain Scale: Adult [facility] ED Course: 13:22 Patient arrived in ED. im 13:24 Rehan Heard DO is Attending Physician. ms3 13:32 Amy Varner, RN is Primary Nurse. ph 13:33 Patient has correct armband on for positive identification. Bed in low position. Call ph light in reach. Side rails up X 1. Pulse ox on. NIBP on. 13:34 Arm band placed on Patient placed in an exam room. ph 13:37 Triage completed. kc6 13:39 AUSTIN AGUAYO, RN is Primary Nurse. dd2 13:45 Provided Education on: call light, procedures, labs, medications. Door closed. Pillow dd2 given. Verbal reassurance given. 13:53 CBC with Diff Sent. dd2 13:53 CMP Sent. dd2 13:58 No provider procedures requiring assistance completed. Initial lab(s) drawn, by me, dd2 sent to lab. Inserted saline lock: 20 gauge in right antecubital area, using aseptic technique. Blood collected. Flushed with 10 mL NS. 14:03 CT Abd/Pelvis - IV Contrast Only In Process Unspecified. EDMS 14:47 Rafaela De Leon MD is Hospitalizing Provider. ms3 15:01 Des Hahn is Hospitalizing Provider. ms3 15:04 CM met with patient and his Jackson at the bedside in the ED exam room. Patient ane identified by name and . Demographic sheet confirmed. Patient states he lives with his in a single story home. Mr. Stapleton reports prior to admission, he performs ADLs independently and without physical limitations. He states he does not have HH, home oxygen, DME or any medical services at this time. He reports he does not have a PCP nor does he have an MPOA in place at this time. His preferred plan is to return home upon discharge. CM provided community resource packet to include local clinics and medication assistance information. Jackson states he will transport Mr Wright home upon discharge. CM team will continue to follow and coordinate care. 15:34 CMP Sent. dd2 16:41 Patient admitted, IV remains in place. dd2 Administered Medications: 13:56 Drug: Ondansetron IVP 4 mg IVP once; over 2 minutes Route: IVP; Site: right antecubital;dd2 14:11 Follow up: Response: No adverse reaction dd2 15:44 Drug: Piperacillin-Tazobactam IVPB 3.375 grams IVPB once over 60 mins; (mix in NS 100 dd2 mL) Route: IVPB; Infused Over: 60 mins; Site: right antecubital; Medication: 13:45 VIS not applicable for this client. dd2 Outcome: 14:47 Decision to Hospitalize by Provider. ms3 16:00 Admitted to OR accompanied by nurse, via wheelchair, with chart, dd2 16:00 Condition: stable 16:00 Instructed on the need for admit, 16:43 Patient left the ED. dd2 Signatures: Dispatcher [employer] Amy Harrington RN RN ph Heard, Rehan, DO [place] ms3 Tameka Bell, RN RN kc6 Ashlyn Marcano Andie, RN RN AUSTIN Cavazos RN RN dd2
[2024-07-09 15:07] LABS: Sqamous Epithelial <5 /HPF (None Seen); Urine Bacteria None Seen /HPF (<20); Urine Bilirubin NEGATIVE (Negative); Urine Blood Negative (Negative); Urine Clarity Clear (Clear); Urine Color Colorless (Yellow); Urine Culture Reflex Order NOT NEEDED; Urine Glucose NEGATIVE (Negative); Urine Ketones NEGATIVE (Negative); Urine Microscopic Reflex YN ORDER UMIC; Urine Nitrite NEGATIVE (Negative); Urine Protein NEGATIVE (Negative); Urine RBC <5 /HPF (None Seen); Urine Urobilinogen Normal (Normal); Urine WBC None Seen /HPF (<5); Urine pH 6.5 (5.0-7.0)
[2024-07-09 15:28] LABS: Specific Gravity > 1.030 (1.005-1.030)
[2024-07-09] MEDS ORDERED: PIPERACIL/TAZO 3.375 GM VIAL IV ONE (15:35)
[2024-07-09] MEDS ORDERED: NA CHLORIDE 0.9% 100 ML ONE (15:35)
--- NOTE | 2024-07-09 15:48 | P.HP ---
Certification for Inpatient Patient admitted to: Observation With expected LOS: <2 Midnights Practitioner: I am a practitioner with admitting privileges, knowledge of patient current condition, hospital course, and medical plan of care. Services: Services provided to patient in accordance with Admission requirements found in Title 42 Section 412.3 of the Code of Federal Regulations Patient History Date of Service: 07/09/24 Reason for admission: appendicitis History of Present Illness: Britton Stapleton is a 24 year old male with Pmhx asthma and depressive disorder who presents to the ED with chief complaint abdominal cramping and pain that started last night and worsened this morning. He reports nausea and vomiting and tried taking Tums with ibuprofen but did not feel better. CT abdomen pelvis revealed rectocecal appendicitis. On evaluation he is conversing well, in no acute distress, lung sounds clear bilaterally, tenderness to right lower quadrant on palpation, afebrile, and a hypertensive. Significant labs WBC 17.4, glucose 162, AST 89, ALT 297. Britton will be admitted to hospitalist service for further treatment of retrocecal appendicitis, Dr. Ortiz consulted. Allergies No Known Allergies Allergy (Unverified 07/09/24 19:58) - Past Medical/Surgical History -: Asthma -: Depressive disorder - Social History Smoking Status: Never smoker Alcohol use: No CD- Drugs: No Review of Systems Gastrointestinal: Nausea, Vomiting, Abdominal Pain Physical Examination - Physical Exam General: Alert, In no apparent distress, Oriented x3 HEENT: Atraumatic, Normocephalic, PERRLA Neck: Supple, 2+ carotid pulse no bruit, JVD not distended Respiratory: Clear to auscultation bilaterally, Normal air movement Cardiovascular: Normal pulses, Regular rate/rhythm, Normal S1 S2 Capillary refill: <2 Seconds Gastrointestinal: Soft and benign, Distended (obese), Tenderness Musculoskeletal: No clubbing Integumentary: No rashes Neurological: Normal speech, Normal tone - Studies Laboratory Data (last 24 hrs) 07/09/24 13:51 WBC 17.40 H Hgb 14.9 Hct 45.0 Plt Count 219 Assessment and Plan - Plan Assessment and plan Acute retrocecal appendicitis Leukocytosis -CT abdomen pelvis revealed rectocecal appendicitis -Dr. Ortiz consulted -Surgery today -N.p.o. -Pain control -Zosyn -IV fluids Transaminitis -AST 89, ALT 297 - monitor in AM labs -IV fluids History of asthma History of depressive disorder -Continue home medication DVT PPx SCD for now Full code LOS 24 hour OBS Discharge Plan: Home Plan to discharge in: 24 Hours - Advance Directives Does patient have a Living Will: No Does patient have a Durable POA for Healthcare: No
[2024-07-09 16:00] LABS: Albumin 4.4 g/dL (3.4-5.0); Albumin/Globulin Ratio 1.2 (1.1-1.8); Anion Gap 10.9 mEq/L (5.0-15.0); Bilirubin Total 0.8 mg/dL (0.2-1.0); Globulin 3.7 g/dL (2.3-3.5); Potassium 3.9 mEq/L (3.5-5.1); Protein, Total 8.1 g/dL (6.4-8.2)
[2024-07-09] MEDS: Ringers Lactate 1,000 ML IV ONE (16:30)
[2024-07-09] MEDS: SUCCINYLCHOLINE 20 MG/ML (10 ML) IV ONE (16:45)
[2024-07-09] MEDS: SUGAMMADEX SODIUM 200 MG/2 ML VIAL IV ONE (16:45)
[2024-07-09] MEDS ORDERED: MIDAZOLAM HCL 2 MG/2 ML INJ ONE (16:53)
[2024-07-09] MEDS ORDERED: FENTANYL CITR 100 MCG/2 ML ONE ×2 (16:53→18:59)
[2024-07-09] MEDS ORDERED: ROCURONIUM 50 MG/5 ML VIAL IV ONE (16:53)
[2024-07-09] MEDS ORDERED: propofoL 200 MG/20 ML VIAL IV ONE ×2 (16:53→18:04)
[2024-07-09] MEDS ORDERED: LIDOCAINE 2% MPF 5 ML VIAL ONE (16:54)
--- NOTE | 2024-07-09 17:40 | P.CNS ---
Date of Consult: 07/09/24 Reason for consult: Abdominal pain History of present illness: Patient is a 24-year-old gentleman comes into the ER with 1 day history of periumbilical abdominal pain localizing to the right side of the abdomen. Patient denies any nausea, vomiting, diarrhea, constipation, blood per rectum, dysuria or hematuria. Patient denies any sore throat, runny nose, cough, headaches, dizziness, chest pain, fever or chills. Pain is constant. Pain is also on the left side occasionally. Review of systems: Otherwise unremarkable Past medical history: Asthma and depression Past surgical history: Negative Allergies: None Social history: Denies any use of tobacco or alcohol Family history: Noncontributory Vital signs: Stable, afebrile Physical exam: Awake, alert and oriented x 3 Head and neck exam: No masses Chest: Clear Heart: S1-S2 Abdomen: Soft, nondistended, positive bowel sounds, right lower and right middle quadrant tenderness with minimal rebound no rigidity or guarding Extremity: Neurovascular intact Neuro: Nonfocal Diagnostic data: CT of the abdomen pelvis consistent with acute retrocecal appendicitis, white count is 17,000 and LFTs are slightly elevated Assessment: Acute appendicitis Plan/recommendation: Admit, n.p.o., IV fluids, IV antibiotics and to the OR for laparoscopic appendectomy possible open. Patient understands risk, benefits and alternatives and agrees to procedure. CC:
--- NOTE | 2024-07-09 18:39 | RAD REPORT ---
EXAM DESCRIPTION: CT - Abdomen Pelvis W Contrast - 07/09/2024 2:02 pm CLINICAL HISTORY: Abdominal pain COMPARISON: none. TECHNIQUE: Computed axial tomography of the abdomen pelvis was obtained. 100 cc Isovue-300 was admin istered intravenously. Oral contrast was not requested which limits evaluation of bowel and appendix All CT scans are performed using dose optimization technique as appropriate and may include automated exposure control or mA/KV adjustment according to patient size. FINDINGS: Fatty liver Spleen, pancreas, adrenal and kidneys appear unremarkable. There is no evidence of diverticulitis. Retrocecal appendix contains fluid. It is dilated. It contains a stone Small inguinal hernias. Small umbilical hernia Due to technical issues the exam could not dictated until now. A preliminary report was given to the emergency room IMPRESSION: Retrocecal appendicitis
[2024-07-09] MEDS ORDERED: ONDANSETRON 4 MG/2 ML VIAL IV PRN ×2 (19:00→19:54)
[2024-07-09] MEDS: CEFOXITIN SODIUM 1 GM/VIAL ONE (19:20)
--- NOTE | 2024-07-09 19:52 | P.OP ---
Date of Service: 07/09/24 Preop diagnosis: Acute retrocecal appendicitis Postop diagnosis: Same with a mesenteric nodule Procedure performed: Laparoscopic appendectomy, excision of a mesenteric nodule Surgeon: Higinio Ortiz MD Boating Safety Officer: None Estimated blood loss: Minimal Specimen: Appendix Findings: As above and the mesenteric nodule Anesthesia: General Complications: None Drains: None Fluids and blood products: Nonapplicable Disposition: Recovery room Operative note: Patient brought to the OR and placed in supine position. General anesthesia began. Patient prepped and draped in usual sterile fashion. Marcaine 0.5% infiltrated locally. 15 blade used to make a 1 cm infraumbilical midline incision. Subcutaneous tissue divided. Bleeding controlled with cautery. Fascia identified and divided. #1 Vicryl stay suture placed. Peritoneal cavity entered with sharp and blunt dissection. 12 mm trocar placed into the peritoneal cavity under direct vision. Pneumoperitoneum established. Then two 5 mm trocar placed 1 in the suprapubic region and 1 in the left lower quadrant under direct vision. Laparoscopy revealed acute retrocecal ap pendicitis. Endo DAREK stapling device used to divide the base of the appendix on the cecum. LigaSure used to divide the mesentery of appendix. A mesenteric nodule was present in the pelvis as well. This was excised with LigaSure as well. Both structures removed via Endo Catch bag. Right lower quadrant pelvis irrigated. Effluent clear no evidence of bleeding or bowel injury appreciated. Subsequently, all trocars removed under direct vision. Stay sutures tied to each other to reapproximate the fascial defect. Subcutaneous wounds irrigated and bleeding controlled cautery. 3-0 chromic used to approximate subcutaneous tissue. Staple used to close skin. Sterile dressing applied. Patient awakened and taken to recovery room in good general condition. CC:
[2024-07-09] MEDS ORDERED: HYDROCODONE/APAP 7.5/325 MG TAB PO PRN (19:54)
[2024-07-09] MEDS: ONDANSETRON 4 MG/2 ML VIAL ONE (20:36)
[2024-07-09] MEDS: PIPER TAZO 3.375 GM in NA CHLORIDE 0.9% 100 ML IV SCH (21:30)
[2024-07-09] MEDS: NA CHLORIDE 0.9% 1,000 ML IV SCH (21:33)
[2024-07-09 22:11] VITALS: BMI 30.2
[2024-07-10] MEDS: HYDROMORPHONE HCL 1 MG/ML INJ IV PRN (00:34)
[2024-07-10 06:54] LABS: Absolute Basophils 0.1 K/uL (0-0.5); Absolute Eosinophils 0.1 K/uL (0-0.5); Absolute Monocytes 1.3 K/uL (0.1-1.3); Absolute Neutrophil 9.4 K/uL (1.8-8.0); Basophils % 0.4 % (0-1.3); Eosinophils % 0.6 % (0-4.4); Hematocrit 40.5 % (39.6-49.0); Lymphocytes % 21.8 % (15.3-44.8); MCH 30.5 pg (27.0-35.0); MCHC 34.5 g/dL (32.0-36.0); MCV 88.4 fL (80-100); MPV 9.3 fL (7.6-11.3); Monocytes % 9.4 % (3.3-12.3); Neutrophils % 67.8 % (41.7-73.7); Platelets 207 thou/uL (152-406); RBC Red Blood Cell Count 4.58 M/uL (4.33-5.43); Red Cell Distribution Width 13.2 % (12.1-15.2)
[2024-07-10 07:13] LABS: Albumin 3.7 g/dL (3.4-5.0); Albumin/Globulin Ratio 1.1 (1.1-1.8); Anion Gap 9.6 mEq/L (5.0-15.0); Bilirubin Total 1.1 mg/dL (0.2-1.0); Globulin 3.5 g/dL (2.3-3.5); Magnesium 1.8 mg/dL (1.6-2.4); Phosphorus 4.3 mg/dL (2.5-4.9); Potassium 3.6 mEq/L (3.5-5.1); Protein, Total 7.2 g/dL (6.4-8.2)
[2024-07-10] MEDS: HYDRALAZINE HCL 20 MG/ML VIAL ONE (08:13)
[2024-07-10] MEDS: BUSPIRONE HCL 5 MG TABLET ONE (08:14)
[2024-07-10] MEDS: POTASSIUM CL SA 10 MEQ TAB PO ONE ×2 (08:14→08:20)
[2024-07-10] MEDS: MAGNESIUM SULFATE 1 gm IVPB 1 GM/100 ML BAG IV ONE (08:20)
[2024-07-10] MEDS: HYDRALAZINE HCL 20 MG/ML VIAL IV PRN (08:20)
[2024-07-10] MEDS: BUSPIRONE HCL 15 MG TABLET PO SCH (10:02)
[2024-07-10] MEDS: FLUOXETINE 10 MG CAP PO SCH (10:02)
--- NOTE | 2024-07-10 10:27 | PN ---
Date of Progress Note: 07/10/2024 Subjective: The patient is awake, alert. Complaining of some incisional pain, otherwise doing well. Objective: Vital Signs: Stable, afebrile. Abdomen: Benign. Dressing is clean, dry, intact. Laboratory Data: White count is down to 13,000. Assessment: Status post laparoscopic appendectomy. Recommendations: Continue IV antibiotics. Likely discharge in a.m. Encourage ambulation and incent madalyn spirometry. /MODL Voice ID: [id number] Report ID: [id number]
--- NOTE | 2024-07-10 18:17 | P.PN ---
Date of Service: 07/10/24 Subjective Awake and c/o abdominal tenderness Advanced to regular diet Reports independently ambulating in the room ROS 10 point ROS as noted above, otherwise negative Physical Exam General: Alert and Oriented x3, NAD HEENT: Atraumatic, Normocephalic, PERRLA Neck: Supple, 2+ carotid pulse no bruit, JVD not distended Respiratory: Clear to auscultation bilaterally, Normal air movement Cardiovascular: Normal pulses, RRR, Normal S1 S2 Capillary refill: <2 Seconds Gastrointestinal: Soft and benign on palpation, Distended (obese), Tenderness Musculoskeletal: No clubbing Integumentary: No rashes Neurological: Normal speech, Normal tone Vitals Reviewed Problem list Acute retrocecal appendicitis s/p Laparoscopic appendectomy, excision of a mesenteric nodule Leukocytosis Transaminitis History of asthma History of depressive disorder Assessment and Plan Acute retrocecal appendicitis s/p Laparoscopic appendectomy, excision of a mesenteric nodule Leukocytosis -CT abdomen pelvis revealed rectocecal appendicitis -Dr. Ortiz Following -Advanced to regular diet -Pain control -continue Zosyn -IV fluids Transaminitis -AST 53, ALT 225 - monitor in AM labs -IV fluids History of asthma History of depressive disorder -Continue home medication DVT PPx SCD for now Full code LOS 24 hour OBS Discharge Plan: Home Plan to discharge in: 24 Hours
[2024-07-11 06:52] LABS: Absolute Basophils 0.1 K/uL (0-0.5); Absolute Eosinophils 0.1 K/uL (0-0.5); Absolute Lymphocytes (CBC) 3.3 K/uL (0.7-4.9); Absolute Monocytes 1.1 K/uL (0.1-1.3); Absolute Neutrophil 6.4 K/uL (1.8-8.0); Basophils % 0.8 % (0-1.3); Eosinophils % 1.2 % (0-4.4); Hematocrit 38.9 % (39.6-49.0); Hemoglobin 13.4 g/dL (13.6-17.9); Lymphocytes % 29.9 % (15.3-44.8); MCH 30.9 pg (27.0-35.0); MCHC 34.5 g/dL (32.0-36.0); MCV 89.6 fL (80-100); MPV 9.2 fL (7.6-11.3); Monocytes % 9.7 % (3.3-12.3); Neutrophils % 58.4 % (41.7-73.7); Platelets 198 thou/uL (152-406); RBC Red Blood Cell Count 4.34 M/uL (4.33-5.43); Red Cell Distribution Width 13.2 % (12.1-15.2)
[2024-07-11 07:06] LABS: Albumin 3.5 g/dL (3.4-5.0); Anion Gap 9.1 mEq/L (5.0-15.0); Bilirubin Total 0.7 mg/dL (0.2-1.0); Globulin 3.6 g/dL (2.3-3.5); Phosphorus 3.7 mg/dL (2.5-4.9); Protein, Total 7.1 g/dL (6.4-8.2)
[2024-07-11 07:10] LABS: Magnesium 2.1 mg/dL (1.6-2.4); Potassium 4.1 mEq/L (3.5-5.1)
--- NOTE | 2024-07-11 07:55 | P.DS ---
Admission Date: 07/10/24 Discharge Date: 07/11/24 Disposition: ROUTINE DISCHARGE Discharge Condition: GOOD Reason for Admission: appendicitis Brief History of Present Illness: Diagnosis Acute retrocecal appendicitis s/p Laparoscopic appendectomy, excision of a mesenteric nodule Leukocytosis Transaminitis History of asthma History of depressive disorder HPI 07/09/2024 Britton Stapleton is a 24 year old male with Pmhx asthma and depressive disorder who presents to the ED with chief complaint abdominal cramping and pain that started last night and worsened this morning. He reports nausea and vomiting and tried taking Tums with ibuprofen but did not feel better. CT abdomen pelvis revealed rectocecal appendicitis. On evaluation he is conversing well, in no acute distress, lung sounds clear bilaterally, tenderness to right lower quadrant on palpation, afebrile, and a hypertensive. Significant labs WBC 17.4, glucose 162, AST 89, ALT 297. Britton will be admitted to hospitalist service for further treatment of retrocecal appendicitis, Dr. Ortiz consulted. Hospital Course: Britton Stapleton is a pleasant 24-year-old male with a past medical history significant for asthma depressive disorder who was admitted to the [facility] on 07/09/2024 for nausea, vomiting, abdominal cramping. Britton presented to the ED with chief complaint of nausea, vomiting, abdominal cramping that was not relieved with Tums or ibuprofen. CT abdomen pelvis revealed rectal cecal appendicitis. Dr. Ortiz was consulted and surgery was performed same day. Britton tolerated procedure and IV antibiotic well. He is ambulating independently and passing gas. He is tolerating p.o. diet and reports pain is well-controlled. He will continue antibiotic therapy outpatient and follow-up with Dr. Ortiz. On 07/11/2024, Britton was seen on morning rounds and deemed medically stable for discharge. Britton was discharged with instructions to schedule follow-up appointments with Dr. Ortiz and PCP. Britton was provided prescriptions for Augmentin and tramadol. Physical Exam General: AAO x3, NAD, afebrile HEENT: Atraumatic, Normocephalic, PERRLA Neck: Supple, 2+ carotid pulse no bruit, JVD not distended Respiratory: Clear to auscultation bilaterally, symmetrical chest wall movement, on room air Cardiovascular: Normal pulses, NSR, Normal S1 S2 Capillary refill: <2 Seconds Gastrointestinal: Soft on palpation, Distended (obese), Tenderness, dressings CDI Musculoskeletal: No clubbing Integumentary: No rashes Neurological: Normal speech, Normal tone Vital Signs/Physical Exam: Temp Pulse Resp BP Pulse Ox 97.5 F 74 16 130/62 90 L 07/11/24 04:00 07/11/24 04:00 07/11/24 04:00 07/11/24 04:00 07/11/24 04:00 Laboratory Data at Discharge: WBC 10.90 thou/uL (4.3-10.9) 07/11/24 06:18 Hgb 13.4 g/dL (13.6-17.9) L 07/11/24 06:18 Hct 38.9 % (39.6-49.0) L 07/11/24 06:18 Plt Count 198 thou/uL (152-406) 07/11/24 06:18 Sodium 137 mEq/L (136-145) 07/11/24 06:18 Potassium 4.1 mEq/L (3.5-5.1) D 07/11/24 06:18 BUN 12 mg/dL (7-18) 07/11/24 06:18 Creatinine 0.93 mg/dL (0.70-1.30) 07/11/24 06:18 Glucose 130 mg/dL (74-106) H 07/11/24 06:18 Phosphorus 3.7 mg/dL (2.5-4.9) 07/11/24 06:18 Magnesium 2.1 mg/dL (1.6-2.4) 07/11/24 06:18 Total Bilirubin 0.7 mg/dL (0.2-1.0) 07/11/24 06:18 AST 48 U/L (15-37) H 07/11/24 06:18 ALT 180 U/L (16-61) H 07/11/24 06:18 Alkaline Phosphatase 70 U/L (45-117) 07/11/24 06:18 Home Medications: Buspirone HCl [Buspar] 1 tab PO DAILY 07/09/24 Fluoxetine HCl [Prozac] 1 tab PO TID 07/09/24 Amox/Clavulanate [Augmentin 875-125 Tab] 875 mg PO BID 7 Days #14 tab 07/11/24 Tramadol HCl 100 mg PO Q6H 4 Days #15 tab 07/11/24 New Medications: Amox/Clavulanate [Augmentin 875-125 Tab] 875 mg PO BID 7 Days #14 tab Tramadol HCl 100 mg PO Q6H 4 Days #15 tab Physician Discharge Instructions: 1. Please call and schedule a follow-up appointment with your PCP in 3-5 days - Please follow-up with your PCP for medication refills/adjustments 2. Please call and schedule a follow-up appointment with Dr Ortiz in one week 3. Continue regular diet 4. activity restrictions, do not lift >10 pounds for three days 5. Return to the ED if symptoms worsen New medications Augmentin 8875 mg twice daily for 7 days Tramadol 100 mg Q6h for 4 days May shower, keep wound clean and dry Dry gauze or Band-Aid to wound daily Antibiotics and pain medicine per the hospitalist team No heavy lifting or strenuous exercise Follow-up my office 1 week, call for appointment Incentive spirometry as instructed Diet: Regular Activity: No lifting more than 10 lbs Followup: NONE,NONE [Primary Care Provider] - Higinio Ortiz MD [ACTIVE - CAN ADMIT] - 07/17/24
[2024-07-11 08:37] VITALS: O2SAT 98
[2024-07-11 10:26] VITALS: BP 140/73; TEMP 97
--- NOTE | 2024-07-11 13:15 | PN ---
Date of Progress Note: 07/11/2024 Subjective: Patient is awake, alert. No complaint. Objective: Vital Signs: Stable, afebrile. Abdomen: Benign. Laboratory Data: His white count is normal. Assessment: Status post laparoscopic appendectomy. Recommendations: Patient cleared from Surgery for discharge. Antibiotics, pain medicine per the [facility] pitalist team. Discharge instruction given. Patient to follow up with me in my office next week. /MODL Voice ID: [id number] Report ID: [id number]
== END 2024-07-11 09:40 | disposition home or self-care (01) | DRG 399 ==
LOC: ER 13:20 → ERHOLD 15:43 → 4TH 16:36 → OBSVTOIN 07-10 23:10
PROVIDERS: ADMIT Internal Medicine; ATTEND Internal Medicine
PROC: 0DBV4ZZ Excision of Mesentery, Percutaneous Endoscopic Approach (ICD-10-PCS; 2024-07-09)
PROC: 0DTJ4ZZ Resection of Appendix, Percutaneous Endoscopic Approach (ICD-10-PCS; principal; 2024-07-09 18:15)
DX: K35.30 Acute appendicitis with localized peritonitis, without perforation or gangrene (principal); F32.A Depression, unspecified; I88.0 Nonspecific mesenteric lymphadenitis; J45.909 Unspecified asthma, uncomplicated; R74.01 Elevation of levels of liver transaminase levels; Z79.899 Other long term (current) drug therapy
CPT/HCPCS: 36415; 74177; 80053; 81001; 83735; 84100; 85025; 88304; 94010; 96374; 96375; 99285; G0378; J0360; J0694; J1170; J2001; J2250; J2405; J2543; J2704; J3010; J7030; J7120; Q9967

== ENCOUNTER 2024-07-19 15:34 | Emergency (ER) | payer OTHER ==
--- OUTSIDE RECORDS SUMMARY | 2024-07-19 15:37 | XMS REPORT | Continuity of Care Document ---
Author Name Unknown Address [address] [place] [address] [employer] Address [address] [place] [id number] Care Team Providers Care Composition Molder Name Role Phone Unavailable Unavailable Unavailable
--- NOTE | 2024-07-19 16:30 | ER ---
Nurse's Notes [facility] Name: Britton Stapleton Age: 24 yrs Sex: Male : 2000 Arrival Date: 07/19/2024 Time: 15:34 Bed Waiting Private MD: Diagnosis: ED Course: 07/19 15:36 Patient arrived in ED. ra3 15:43 [facility]iz [facility] sb4 15:43 Brandt Champion MD is Attending Physician. sb4 16:25 Patient's name was called from ER lobby. No response. cm10 16:28 Patient's name was called from ER lobby. Unable to locate patient. Will disposition as cm10 left without being seen by a provider. Administered Medications: No medications were administered Outcome: 16:29 Patient left the ED. cm10 Signatures: Nicky Veliz PA-C PA-C sb4 Nancy Cannon RN RN cm10 Brittany Barnett ra3
== END 2024-07-19 16:29 | disposition left against medical advice (07) ==
LOC: ER 15:34
DX: Z02.89 Encounter for other administrative examinations (principal)

== ENCOUNTER 2024-07-20 09:34 | Emergency (ER) | payer OTHER ==
--- OUTSIDE RECORDS SUMMARY | 2024-07-20 09:36 | XMS REPORT | Continuity of Care Document ---
Author Name Unknown Address [address] [place] [address] [employer] Address [address] [place] [address] Care Team Providers Care Deputy Sheriff Lieutenant Name Role Phone Unavailable Unavailable Unavailable
--- NOTE | 2024-07-20 10:09 | EDPHYS ---
Physician Documentation [facility] Name: Britton Stapleton Age: 24 yrs Sex: Male : 2000 Arrival Date: 07/20/2024 Time: 09:34 Bed 14 Private MD: ED Physician Sam Vines HPI: 07/20 09:57 This 24 yrs old Male presents to ER via Ambulatory with complaints of Staple Removal. sb4 09:57 had laparoscopic appendectomy by Dr. Ortiz 11 days ago, was supposed to have follow up sb4 appointment 3 days ago, didn't go because he doesn't have insurance. is concerned the stapled incision sites are getting infected. reports minor pain, denies fever or drainage. Historical: - Allergies: 09:51 No Known Allergies; hb - PMHx: 09:51 Asthma; depressive disorder; hb - PSHx: 09:51 Appendectomy; hb - Immunization history:: Adult Immunizations up to date. - Infectious Disease History:: Denies. - Social history:: Smoking status: Patient denies any tobacco usage or history of. ROS: 09:58 Constitutional: Negative for fever, chills, and weight loss, sb4 09:58 Skin: Positive for erythema, of the abdomen, 09:58 All other systems are negative, Exam: 10:07 Constitutional: This is a well developed, well nourished patient who is awake, alert, sb4 and in no acute distress. 10:07 Skin: Wound recheck: Staple laceration closure: the wound is healing well, the edges are well approximated, no evidence of dehiscence, no drainage, no swelling, mild erythema, Vital Signs: 09:49 BP 140 / 109; Pulse 81; Resp 16; Temp 98; Pulse Ox 100% on R/A; Weight 92.99 kg; Height hb 5 ft. 9 in. ; Pain 0/10; 10:14 BP 132 / 103; Pulse 78; Resp 16; Pulse Ox 99% ; ko1 09:49 Body Mass Index 30.27 (92.99 kg, 175.26 cm) hb 09:49 Pain Scale: Adult hb Procedures: 10:07 Suture/Staple removal: Removed 9 da, from abdomen, site appears well healed, sb4 dressed with steri strips. Patient tolerated well. MDM: 09:47 Patient medically screened. sb4 10:07 Management of patient was discussed with the following: Triage Rn: lynne Estes sb4 with me removing da. 10:07 Data reviewed: vital signs, nurses notes, and as a result, I will discharge patient. sb4 Counseling: I had a detailed discussion with the patient and/or guardian regarding the historical points, exam findings, and any diagnostic results supporting the discharge/admit diagnosis, the need for outpatient follow up, Dr. Ortiz, to return to the emergency department if symptoms worsen or persist or if there are any questions or concerns that arise at home. Administered Medications: No medications were administered Disposition: 12:09 Co-signature as Attending Physician, Sam Vines MD I reviewed the patient's care rn provided by the Advanced Practice Provider and agree with the diagnosis and treatment plan. Disposition Summary: 07/20/24 10:09 Discharge Ordered Notes: Location: Home sb4 Problem: new sb4 Symptoms: have improved sb4 Condition: Stable sb4 Diagnosis - Encounter for removal of sutures - da sb4 Followup: sb4 - With: Higinio Ortiz MD - When: 2 - 3 days - Reason: Recheck today's complaints, Re-evaluation by your physician Discharge Instructions: - Discharge Summary Sheet sb4 - Suture Removal, Care After sb4 Forms: - Patient Portal Instructions sb4 - Leadership Thank You Letter sb4 Signatures: Sam Vines MD MD rn Baxter, Heather, RN RN hb Brown, Sophia, PA-C PA-C sb4 Corrections: (The following items were deleted from the chart) 09:58 09:57 had laparoscopic appendectomy 11 days ago, was supposed to have follow up sb4 appointment 3 days ago, didn't go because he doesn't have insurance. is concerned the stapled incision sites are getting infected. reports minor pain, denies fever or drainage. sb4
--- NOTE | 2024-07-20 10:09 | ER ---
Nurse's Notes [facility] Name: Britton Stapleton Age: 24 yrs Sex: Male : 2000 Arrival Date: 07/20/2024 Time: 09:34 Bed 14 Private MD: Diagnosis: Encounter for removal of sutures-da Presentation: 07/20 09:49 Chief complaint: Had appendectomy by Dr. Ortiz on 07/09, was unable to follow up, wants hb da removed. Coronavirus screen: At this time, the client does not indicate any symptoms associated with coronavirus-19. Ebola Screen: No symptoms or risks identified at this time. Initial Sepsis Screen: Does the patient meet any 2 criteria? No. Patient's initial sepsis screen is negative. Does the patient have a suspected source of infection? No. Patient's initial sepsis screen is negative. Risk Assessment: Do you want to hurt yourself or someone else? Patient reports no desire to harm self or others. Onset of symptoms was July 20, 2024. 09:49 Method Of Arrival: Ambulatory hb 09:49 Acuity: TYLER 4 hb Historical: - Allergies: 09:51 No Known Allergies; hb - PMHx: 09:51 Asthma; depressive disorder; hb - PSHx: 09:51 Appendectomy; hb - Immunization history:: Adult Immunizations up to date. - Infectious Disease History:: Denies. - Social history:: Smoking status: Patient denies any tobacco usage or history of. Screenin:55 [facility] ED Fall Risk Assessment (Adult) History of falling in the last 3 months, ko1 including since admission No falls in past 3 months (0 pts) Confusion or Disorientation No (0 pts) Intoxicated or Sedated No (0 pts) Impaired Gait No (0 pts) Mobility Assist Device Used No (0 pt) Altered Elimination No (0 pt) Score/Fall Risk Level 0 - 2 = Low Risk Oriented to surroundings, Maintained a safe environment, Educated pt \T\ family on fall prevention, incl call for assistance when getting out of bed, Assessed \T\ reinforced patient's understanding of fall precautions, Provided non-skid footwear, Hourly rounding (assess needs \T\ fall precautionary measures) done. Abuse screen: Denies threats or abuse. Denies injuries from another. Nutritional screening: No deficits noted. Tuberculosis screening: No symptoms or risk factors identified. Assessment: 09:55 General: Appears in no apparent distress. Behavior is cooperative, appropriate for age. ko1 Pain: Denies pain. Neuro: No deficits noted. Cardiovascular: No deficits noted. Respiratory: No deficits noted. GI: No deficits noted. : No deficits noted. EENT: No deficits noted. Derm: da to abdomen. Musculoskeletal: No deficits noted. Vital Signs: 09:49 BP 140 / 109; Pulse 81; Resp 16; Temp 98; Pulse Ox 100% on R/A; Weight 92.99 kg; Height hb 5 ft. 9 in. ; Pain 0/10; 10:14 BP 132 / 103; Pulse 78; Resp 16; Pulse Ox 99% ; ko1 09:49 Body Mass Index 30.27 (92.99 kg, 175.26 cm) hb 09:49 Pain Scale: Adult hb ED Course: 09:38 Patient arrived in ED. mg5 09:42 Nicky Veliz [facility]-C [facility]. sb4 09:42 Sam Vines MD is Attending Physician. sb4 09:51 Triage completed. hb 09:52 Arm band placed on. hb 09:54 Ester Vides, RN is Primary Nurse. ko1 09:55 Patient has correct armband on for positive identification. Bed in low position. Call ko1 light in reach. Side rails up X 1. Provided Education on: call light. Pulse ox on. NIBP on. Door closed. Noise minimized. Lights dimmed. Warm blanket given. Pillow given. 10:08 Higinio Ortiz MD is Referral Physician. sb4 10:14 No provider procedures requiring assistance completed. Patient did not have IV access ko1 during this emergency room visit. Administered Medications: No medications were administered Medication: 09:55 VIS not applicable for this client. ko1 Outcome: 10:09 Discharge ordered by . sb4 10:14 Discharged to home ambulatory, with family, ko1 10:14 Condition: stable 10:14 Discharge instructions given to patient, Instructed on discharge instructions, follow up and referral plans. wound care, Demonstrated understanding of instructions, follow-up care, wound care, 10:15 Patient left the ED. ko1 Signatures: Mariola Lovett RN RN Ester Vides RN RN ko1 Nicky Veliz PA-C PA-C sb4 Chana Gunderson mg5 Corrections: (The following items were deleted from the chart) 09:53 09:49 BP 140 / 109; Pulse 81bpm; Resp 16bpm; Pulse Ox 100% RA; Temp 98F; Pain 0/10, hb Adult; hb
[2024-07-20 10:20] VITALS: TEMP 98
[2024-07-20 10:22] VITALS: BP 132/103; O2SAT 99
== END 2024-07-20 10:15 | disposition home or self-care (01) ==
LOC: ER 09:34
DX: Z48.02 Encounter for removal of sutures (principal)
CPT/HCPCS: 99283